=== PATIENT | female | born 1935 | race Asian ===

== ENCOUNTER 2017-07-20 12:36 | Emergency (ER) | payer MEDICAID ==
[~2017-07-20] VITALS: Ht 144.8 cm; Wt 38.1 kg
[2017-07-20 13:20] LABS: UA SPECIFIC GRAVITY >=1.030 (1.005-1.035); microscopic required? YES; urine erythrocyte 1+ (NEGATIVE)
[2017-07-20 13:23] LABS: BASOPHIL % 0.4 % (0-2)
[2017-07-20 13:24] LABS: PLATELET COUNT 458 x10^3mcL (130-400)
[2017-07-20 13:30] LABS: CALCIUM 9.4 mg/dL (8.5-10.1); CARBON DIOXIDE 28.6 mmol/L (21-32); CHLORIDE SERUM 101 mmol/L (98-107); CREATININE SERUM 0.5 mg/dL (0.6-1.0); GLUCOSE SERUM 95 mg/dL (74-106); POTASSIUM SERUM 3.6 mmol/L (3.5-5.1); SODIUM SERUM 141 mmol/L (136-145)
[2017-07-20 13:35] LABS: ALKALINE PHOSPHATASE 140 U/L (46-116); ALT/SGPT 8 U/L (14-59); AST/SGOT 18 U/L (15-37); BILIRUBIN TOTAL 0.34 mg/dL (0.20-1.00); LIPASE 100 IU/L (73-393); TOTAL PROTEIN, SERUM 8.4 g/dL (6.4-8.2)
[2017-07-20 13:36] LABS: ALBUMIN 3.3 g/dL (3.4-5.0)
[2017-07-20 15:29] VITALS: BP 146/78
== END 2017-07-20 15:29 | disposition home or self-care (01) ==
LOC: ED 12:36
PROVIDERS: Emergency Medicine
DX: M54.5 Low back pain (principal); I10 Essential (primary) hypertension
CPT/HCPCS: J1885

== ENCOUNTER → 2019-08-20 | Outpatient (CLI) | payer OTHER | END | disposition home or self-care (01) | LOC: RD 15:25 | PROVIDERS: ATTEND Internal Medicine | DX: R05 Cough (principal) ==